=== PATIENT | male | born 1985 | race Caucasian/White ===

== ENCOUNTER 2016-08-26 20:38 | Emergency (ER) | payer MEDICAID ==
[~2016-08-26] VITALS: Ht 170.2 cm; Wt 89.0 kg
[2016-08-26 20:42] VITALS: Ht 170.2 cm; Wt 89.0 kg
[2016-08-26] MEDS ORDERED: MECL-77 PO (23:14)
--- NOTE | 2016-08-26 23:29 | ERD ---
ER Documentation Chief Complaint Date/Time DATE: 08/26/16 TIME: 23:19 Chief Complaint ABD. PAIN ASSOCIATED WITH N/V TODAY; DENIES SX'S AND DIARRHEA. HPI 31-year-old male is complaining of dizziness, nausea, vomiting since this morning. Describes dizziness as spinning-like sensation, worse with head movement. The spinning is worse when he is sitting up, better when lying down. He vomited more than 10 times today. He has abdominal pain, feels like someone was punching him in the stomach. Patient stated that he had a cold a week before. In addition, patient complaining of right-sided neck pain. Denies fever. Denies diarrhea. Denies recent head injuries. ROS All systems reviewed and are negative except as per history of present illness. Medications Home Meds Active Scripts Ondansetron (Ondansetron Odt) 4 Mg Tab.rapdis, 4 MG PO Q6H Y for NAUSEA AND/OR VOMITING, #10 TAB Prov:ITZ MELCHOR. C[employer]OMER SUCCESS MANAGER 08/27/16 Meclizine Hcl* (Meclizine Hcl*) 25 Mg Tablet, 25 MG PO Q8H Y for DIZZINESS, #30 TAB Prov:ITZ MELCHOR. CUSTOMER SUCCESS MANAGER 08/26/16 Allergies Allergies: Coded Allergies: No Known Allergy (Unverified , 08/26/16) PMhx/Soc Medical and Surgical Hx: pt denies Medical Hx, pt denies Surgical Hx Hx Alcohol Use: Yes (SOCIALLY) Hx Substance Use: No Hx Tobacco Use: No Smoking Status: Never smoker Physical Exam Vitals Vital Signs Date Time Temp Pulse Resp B/P Pulse Ox O2 Delivery O2 Flow Rate FiO2 08/26/16 20:42 98.1 77 19 126/85 100 Physical Exam General impression: Well-developed, well-nourished, 31-year-old male male, alert, oriented, in no acute distress Head: Normocephalic, atraumatic. Eyes: PERRL, EOM normal. Conjunctiva not injected. No nystagmus noted. ENT: External canals clear. TM's pearly gonzales. Nasal mucosa, oral mucosa and oropharynx are normal. Neck: Supple, nontender. No lymphanopathy. No nuchal rigidity. Right sternocleidomastoid muscle spasm noted. Respiration: Normal respiratory effort. Lungs clear to auscultate bilaterally. No wheezes, rales or rhonchi. Cardiovascular: Regular rate and rhythm. No murmurs or extra heart sounds. Abdomen: Abdomen normal to inspection. Mild epigastric tenderness. No right upper or right lower quadrant tenderness. No masses or organomegaly. Bowel sounds normal. Neuro: Mental status normal, speech normal. FIRE WATCHER II-XII intact. Normal sensation and strength in all 4 extremities. No focal weakness noted. Skin: Normal turgor. No rash or lesions. Psych: Normal mood and affect. Results 24 hrs Current Medications Medications (Trade) Dose Ordered Sig/Steffanie Route PRN Reason Start Time Stop Time Status Last Admin Dose Admin Meclizine HCl (Antivert) 25 mg ONCE ONCE PO 08/26/16 23:30 08/26/16 23:31 DC 08/26/16 23:17 Diphenhydramine HCl (Benadryl) 50 mg ONCE ONCE IM 08/27/16 01:00 08/27/16 01:01 DC 08/27/16 00:50 Lorazepam (Ativan) 1 mg ONCE ONCE IM 08/27/16 01:00 08/27/16 01:01 DC 08/27/16 00:50 Procedures/MDM 31-year-old male with vertigo, nausea and vomiting 1 day. [place]-Hallpike maneuver is positive on the right side. Likely patient has benign positional vertigo. Low suspicion for central causes of vertigo. I suspect patient's abdominal pain is secondary to vomiting. Low suspicion for acute appendicitis, cholecystitis, bowel obstruction, or other acute abdomen. Patient also noted to have right side neck spasm on exam. Patient is given meclizine in the ED. After meclizine, patient still complained of feeling nausea and wanting to vomit. Dr. Peck is consulted, he recommended give patient 50 mg of Benadryl and 1 mg Ativan IM. After IM medication, patient reports feeling better. Patient appears well at this time, stable for discharge and outpatient management. Patient advised to follow-up with the primary care provider, [facility] clinic referral information provided. Medical decision making shared with patient and family. Education provided to patient and family. Patient and family expressed understanding of the plan. Medications on discharge: Meclizine, Zofran. Follow-up: Primary care provider in 2-3 days or return to ED if worse. Departure Diagnosis: Primary Impression: BPV (benign positional vertigo) Laterality: right Qualified Code: H81.11 - BPV (benign positional vertigo), right Condition: Stable Patient Instructions: Benign Positional Vertigo [facility] Usted se godinez hecho un examen mdico de control que le indica que no est en clarke condicin que requiera tratamiento urgente en el Departamento de Emergencia. Un estudio ms profundo y el tratamiento de diallo condicin pueden esperar sin ningn riesgo hasta que usted sea atendida/o en el consultorio de diallo mdico o clarke cl sai. Es responsabilidad suya arreglar clarke swapnil para el seguimiento del verna. MANEJO DE CONDICIONES NO URGENTES EN EL FUTURO 1) Si usted tiene un mdico de atencin primaria: Usted debera llamar a diallo mdico de atencin primaria antes de venir al departamento de emergencia. Despus de las horas de consultorio, diallo doctor o diallo asociado/a est disponible por telfono. El mdico o enfermero de [place] en el servicio telefnico puede asesorarle por susana medio para atender el problema, o verna contrario se puede programar clarke swapnil. 2) Si usted no tiene un mdico de atencin primaria: Llame al mdico o clnica de referencia que aparece abajo shagufta las horas de consultorio para hacer clarke swapnil para que le vean. CLINICAS: [facility] [phone] [facility] [phone] [facility] [phone] [facility] [phone] [facility]. [facility] [phone] [facility]. [phone] Additional Instructions: Llame al doctor MAANA y jayashree clarke SWAPNIL PARA DENTRO DE 2-3 SALCEDO.Dgale a la secretaria que nosotros le instruimos hacer esta swapnil.Avise o llame si diallo condicin se empeora antes de la swapnil. Regresa aqui si peor o no mejor. ITZ MELCHOR. LUISA Aug 26, 2016 23:29
[2016-08-26] MEDS ORDERED: MECLIZINE 12.5 MG TAB PO ONE (23:30)
[2016-08-27] MEDS ORDERED: DIPHENHYDRAMINE 50 MG INJ IM ONE (01:00)
[2016-08-27] MEDS ORDERED: LORAZEPAM 2 MG INJ IM ONE (01:00)
[2016-08-27] MEDS ORDERED: ONDA4TAB14 PO (01:08)
[2016-08-27 01:40] VITALS: BP 131/73; PULSE 69; RESP 16; TEMP 98.2
== END 2016-08-27 02:00 | disposition home or self-care (01) ==
LOC: FTE 20:38
DX: H81.11 Benign paroxysmal vertigo, right ear (principal)
CPT/HCPCS: 96372; J1200; J2060; Z7502; Z7610